=== PATIENT | male | born 1940 | race Caucasian/White ===

== ENCOUNTER → 2016-08-08 | Outpatient (CLI) | payer OTHER ==
[2016-08-08 09:11] LABS: BASOPHILS # (AUTO) 0.03 10*3/UL; BASOPHILS % (AUTO) 0.2 % (0-1); EOSINOPHILS % (AUTO) 0.9 % (0-8); HEMATOCRIT 48.7 % (42.0-52.0); HEMOGLOBIN 16.2 g/dL (14.0-18.0); IMM GRAN % (AUTO) 0.3 % (0-5); IMM GRAN# (AUTO) 0.05 10*3/UL; MEAN CORPUSCULAR HEMOGLOBIN 29.2 PG (27-31); MEAN CORPUSCULAR HGB CONC 33.3 g/dL (33-37); MEAN PLATELET VOLUME 9.6 FL (7.4-12.2); MONOCYTES # (AUTO) 0.89 10*3/UL (0.3-0.8); MONOCYTES % (AUTO) 6.2 % (5-15); NEUTROPHILS # (AUTO) 3.19 10*3/UL; NEUTROPHILS % (AUTO) 22.4 % (50-80); RDW COEFFICIENT OF VARIATION 14.9 % (11.5-14.5); RED BLOOD COUNT 5.54 10^6/uL (4.70-6.10); WHITE BLOOD COUNT 14.29 10^3/uL (4.8-10.8)
[2016-08-08 09:15] LABS: PLATELET MORPHOLOGY COMMENT NORMAL MORPHOLOGY (NORM)
[2016-08-09 10:07] LABS: PSAFREE 1.4 ng/mL (()); PSATOTAL 12.7 ng/mL (<=6.5)
== END ==
LOC: LAB 08:32
PROVIDERS: ATTEND Internal Medicine
DX: D72.820 Lymphocytosis (symptomatic) (principal); R97.20 Elevated prostate specific antigen [PSA]
CPT/HCPCS: 36415; 84153; 84154; 85025

== ENCOUNTER → 2016-08-17 | Outpatient (CLI) | payer OTHER | LOC: MMPC 11:11 | PROVIDERS: ATTEND Nurse Practitioner | DX: R97.20 Elevated prostate specific antigen [PSA] (principal); D72.820 Lymphocytosis (symptomatic) | CPT/HCPCS: 99214 ==

== ENCOUNTER → 2016-11-13 | Outpatient (CLI) | payer OTHER ==
[2016-11-13 09:29] LABS: HEMATOCRIT 47.2 % (42.0-52.0); MEAN CORPUSCULAR HEMOGLOBIN 29.7 PG (27-31); MEAN CORPUSCULAR HGB CONC 33.9 g/dL (33-37); MEAN CORPUSCULAR VOLUME 87.6 FL (80-90); RED BLOOD COUNT 5.39 10^6/uL (4.70-6.10)
[2016-11-13 10:10] LABS: PLATELET MORPHOLOGY COMMENT NORMAL MORPHOLOGY (NORM); RBC MORPHOLOGY COMMENT NORMAL MORPHOLOGY (NORM)
[2016-11-13 10:11] LABS: WBC MORPHOLOGY COMMENT SEE COMMENTS (NORM)
[2016-11-13 12:17] LABS: BAND NEUTROPHILS % 0 % (0-10); BASOPHILS % (MANUAL) 0 % (0-1); EOSINOPHILS % (MANUAL) 1 % (0-8); LYMPHOCYTES % (MANUAL) 69 % (10-50); METAMYELOCYTES % 0 %; MONOCYTES % (MANUAL) 4 % (0-12); MYELOCYTES % 0 %; NEUTROPHILS % (MANUAL) 26 % (50-80); PROMYELOCYTES % 0 %
[2016-11-15 10:56] LABS: PSATOTAL 11.1 ng/mL (<=6.5)
[2016-11-15 11:34] LABS: FREE PSA/PSA RATIO SEE COMMENTS ratio (())
== END ==
LOC: LAB 09:14
PROVIDERS: ATTEND Internal Medicine
DX: R97.20 Elevated prostate specific antigen [PSA] (principal); D72.820 Lymphocytosis (symptomatic)
CPT/HCPCS: 36415; 84153; 84154; 85007

== ENCOUNTER → 2016-11-15 | Outpatient (CLI) | payer OTHER | LOC: MMPC 11:11 | PROVIDERS: ATTEND Internal Medicine | DX: R97.20 Elevated prostate specific antigen [PSA] (principal); D72.820 Lymphocytosis (symptomatic); I10 Essential (primary) hypertension; E78.5 Hyperlipidemia, unspecified | CPT/HCPCS: 99214; G0463 ==